=== PATIENT | female | born 1975 | race Caucasian/White ===

== ENCOUNTER 2025-03-03 04:03 | Emergency (ER) | payer BC, OTHER ==
[2025-03-03] MEDS ORDERED: Tetracaine 0.5% PF 4 ML BOT ONE (04:45)
[2025-03-03] MEDS ORDERED: Fluorescein Opthalmic Strip ONE (04:45)
== END 2025-03-03 05:45 | disposition home or self-care (01) ==
LOC: NAV ERS 04:03
DX: H57.89 Other specified disorders of eye and adnexa (principal); K21.9 Gastro-esophageal reflux disease without esophagitis; F32.A Depression, unspecified; E11.9 Type 2 diabetes mellitus without complications; F90.9 Attention-deficit hyperactivity disorder, unspecified type; Z75.3 Unavailability and inaccessibility of health-care facilities; Z79.899 Other long term (current) drug therapy
CPT/HCPCS: 99283